=== PATIENT | male | born 1995 | race Caucasian/White ===

== ENCOUNTER 2017-12-15 11:51 | Emergency (ER) | payer MEDICAID, SELFPAY ==
[2017-12-15 12:20] VITALS: BP 137/70; PULSE 70; RESP 18; TEMP 37.6; O2SAT 99
--- NOTE | 2017-12-15 13:12 | W.ED.GENAD ---
Discharge Plan Disposition Patient Disposition: HOME Condition: Good Discharge Details Chief Complaint: DentalOral Clinical Impression: Pain, dental Primary Care Provider: NONE,NONE ED Provider: Tesfaye Snell Home Meds and New Rx's Prescriptions: New amoxicillin 500 mg capsule 500 mg PO BID Qty: 20 RF: 0 Discharge Instructions Instructions: Toothache (ED) Referrals: Ernestina Jackson DDS [MD CONSULTING PHYSICIAN] - Return if symptoms worsen Discharge Data Discharge Date/Time-TO BE ENTERED AT DEPARTURE: 12/15/17 13:20 Medical Decision Making I explained that his exam was normal. He has problems in the past. He does not have local pcp yet or dentist. I agreed to prescribe Amoxicllin to hold and start only if symptoms of infection develop. Return to ED if unable to tolerate antibiotics. He agreed with POC. HPI General Mode of arrival: ambulatory. Date/Time Provider Initiated Documentation: 12/15/17 13:12. Limitations to Documentation: no limitations. Information obtained by: patient. History of Present Illness 22 year old M presents to the emergency department with the chief complaint of dental pain, HPI Narrative: 22 y/o male c/o dental pain for the last week. He thinks it is his wisdom tooth. Denies any fever, chills, swelling or drainage. Related Data Home Medications Medication Instructions Recorded Confirmed amoxicillin 500 mg PO BID #20 cap 12/15/17 Previous Rx's Medication Instructions Recorded amoxicillin 500 mg PO BID #20 cap 12/15/17 Allergies Allergy/AdvReac Type Severity Reaction Status Date / Time No Known Allergies Allergy Unverified 12/15/17 12:20 General Stated Complaint: DentalOral HENOK: 5 Review of Systems Constitutional Reports as per HPI ENT Reports dental pain Cardiovascular Reports system reviewed and no additional complaints, except as docu Respiratory Reports system reviewed and no additional complaints, except as docu Gastrointestinal Reports system reviewed and no additional complaints, except as docu PFSH Social History Smoking/Tobacco Use Status: Current every day Exam Const General: cooperative, healthy appearing, no acute distress, well groomed and other (full madrigal) Nutritional Appearance: average body habitus Orientation: alert, awake and oriented x3 HENMT Head: normal to inspection Ears: hearing grossly normal bilaterally, external ears normal and TM's normal bilaterally Face and sinus: normal facial exam Mouth: oral mucosae normal, lip normal, tongue normal, oropharynx normal and moist mucous membranes Teeth and gingiva: dentition normal Teeth image: 1. Area of concern. No swelling, redness, pain, f/b, drainage. Dentition normal Throat: posterior oropharynx normal Eyes General: appearance normal, both eyes and all related structures Neck Neck: normal visual inspection, full ROM and no lymphadenopathy Resp Effort & Inspection: normal respiratory effort Psych Appearance: grossly normal Mental Status: mental status grossly normal Speech and Movement: speech and movement normal Mood: congruent mood Affect: normal affect Attitude: cooperative Thought Process: normal Thought Content: normal Insight: insight good Judgment: judgment good Course Vital Signs Temperature 37.6 C 12/15/17 12:20 Pulse 70 12/15/17 12:20 Respiratory Rate 18 12/15/17 12:20 Blood Pressure 137/70 12/15/17 12:20 Pulse Oximetry 99 12/15/17 12:20 Temperature 37.6 C 12/15/17 12:20 Temperature Source Oral 12/15/17 12:20 Pulse 70 12/15/17 12:20 Respiratory Rate 18 12/15/17 12:20 Respiratory Effort 12/15/17 12:20 Blood Pressure 137/70 12/15/17 12:20 Blood Pressure Position Sitting 12/15/17 12:20 Pulse Oximetry 99 12/15/17 12:20 Oxygen Delivery Method Room Air 12/15/17 12:20 Oxygen Flow Rate 0 12/15/17 12:20 Pain Level 8 12/15/17 12:23
--- NOTE | 2017-12-15 13:16 | ED.GENADUL_ITS ---
Discharge Plan Disposition Patient Disposition: HOME Condition: Good Discharge Details Chief Complaint: DentalOral Clinical Impression: Pain, dental Primary Care Provider: NONE,NONE ED Provider: Tesfaye Snell Home Meds and New Rx's Prescriptions: New amoxicillin 500 mg capsule 500 mg PO BID Qty: 20 RF: 0 Discharge Instructions Instructions: Toothache (ED) Referrals: Ernestina Jackson DDS [MD CONSULTING PHYSICIAN] - Return if symptoms worsen Discharge Data Discharge Date/Time-TO BE ENTERED AT DEPARTURE: 12/15/17 13:20 Medical Decision Making I explained that his exam was normal. He has problems in the past. He does not have local pcp yet or dentist. I agreed to prescribe Amoxicllin to hold and start only if symptoms of infection develop. Return to ED if unable to tolerate antibiotics. He agreed with POC. HPI General Mode of arrival: ambulatory . Date/Time Provider Initiated Documentation: 12/15/17 13:12 . Limitations to Documentation: no limitations . Information obtained by: patient . History of Present Illness 22 year old M presents to the emergency department with the chief complaint of dental pain, HPI Narrative: 22 y/o male c/o dental pain for the last week. He thinks it is his wisdom tooth. Denies any fever, chills, swelling or drainage. Related Data Home Medications Medication Instructions Recorded Confirmed amoxicillin 500 mg PO BID #20 cap 12/15/17 Previous Rx's Medication Instructions Recorded amoxicillin 500 mg PO BID #20 cap 12/15/17 Allergies Allergy/AdvReac Type Severity Reaction Status Date / Time No Known Allergies Allergy Unverified 12/15/17 12:20 General Stated Complaint: DentalOral HENOK: 5 Review of Systems Constitutional Reports as per HPI ENT Reports dental pain Cardiovascular Reports system reviewed and no additional complaints, except as docu Respiratory Reports system reviewed and no additional complaints, except as docu Gastrointestinal Reports system reviewed and no additional complaints, except as docu PFSH Social History Smoking/Tobacco Use Status: Current every day Exam Const General: cooperative, healthy appearing, no acute distress, well groomed and other (full madrigal) Nutritional Appearance: average body habitus Orientation: alert, awake and oriented x3 HENMT Head: normal to inspection Ears: hearing grossly normal bilaterally, external ears normal and TM's normal bilaterally Face and sinus: normal facial exam Mouth: oral mucosae normal, lip normal, tongue normal, oropharynx normal and moist mucous membranes Teeth and gingiva: dentition normal Teeth image: 2 1. Area of concern. No swelling, redness, pain, f/b, drainage. Dentition normal Throat: posterior oropharynx normal Eyes General: appearance normal, both eyes and all related structures Neck Neck: normal visual inspection, full ROM and no lymphadenopathy Resp Effort & Inspection: normal respiratory effort Psych Appearance: grossly normal Mental Status: mental status grossly normal Speech and Movement: speech and movement normal Mood: congruent mood Affect: normal affect Attitude: cooperative Thought Process: normal Thought Content: normal Insight: insight good Judgment: judgment good Course Vital Signs Temperature 37.6 C 12/15/17 12:20 Pulse 70 12/15/17 12:20 Respiratory Rate 18 12/15/17 12:20 Blood Pressure 137/70 12/15/17 12:20 Pulse Oximetry 99 12/15/17 12:20 Temperature 37.6 C 12/15/17 12:20 Temperature Source Oral 12/15/17 12:20 Pulse 70 12/15/17 12:20 Respiratory Rate 18 12/15/17 12:20 Respiratory Effort 12/15/17 12:20 Blood Pressure 137/70 12/15/17 12:20 Blood Pressure Position Sitting 12/15/17 12:20 Pulse Oximetry 99 12/15/17 12:20 Oxygen Delivery Method Room Air 12/15/17 12:20 Oxygen Flow Rate 0 12/15/17 12:20 Pain Level 8 12/15/17 12:23
[2017-12-15] MEDS: Benzocaine 20% Gel 30 GM JAR MM (13:21)
== END 2017-12-15 13:20 | disposition home or self-care (01) ==
LOC: ER 13:50
PROVIDERS: Emergency Provider Nurse Practitioner Family
DX: K08.89 Other specified disorders of teeth and supporting structures (principal); F17.210 Nicotine dependence, cigarettes, uncomplicated
CPT/HCPCS: 99283